=== PATIENT | female | born 1990 | race Two or more races ===

== ENCOUNTER 2017-05-01 21:11 | Observation (INO) | payer MEDICAID, OTHER ==
[2017-04-30] MEDS: SODIUM CHLOR 0.45% 1000 ML INJ 1,000 ML IV SCH (22:30)
[2017-04-30] MEDS: SODIUM CHLORIDE 0.9% FLUSH 10 ML FLUSH IV FLUSH SCH (22:30)
[~2017-05-01 21:11] MED LIST: ABIL15TA2 PO; CLIN1CAP5 PO; FLUMAZENIL 0.5 MG/5 ML VIAL IV PUSH PRN; LORazepam 1 MG TAB PO PRN; LORazepam 2 MG TAB PO PRN; LORazepam 2 MG/ML VIAL IV PUSH PRN; NALOXONE HCL 0.4 MG/ML AMP IV PUSH PRN; ONDANSETRON HCL 4 MG/2 ML VIAL IVP PRN; SODIUM CHLORIDE 0.9% FLUSH 10 ML FLUSH IV FLUSH PRN; TEMAZEPAM 15 MG CAP PO PRN
[2017-05-01 21:44] VITALS: BP 126/76; PULSE 98; RESP 22; TEMP 98.1; O2SAT 98
[2017-05-02 01:01] VITALS: BP 107/59; PULSE 81; RESP 20; TEMP 98.2; O2SAT 98
[2017-05-02 02:17] LABS: HEMATOCRIT 32.9 % (35.0-46.0)
[2017-05-02 02:31] LABS: REVIEW FLAG FINAL
[2017-05-02 04:00] VITALS: BP 107/59; PULSE 81; RESP 20; TEMP 98.2; O2SAT 98
[2017-05-02 08:00] VITALS: BP_SYST 102; BP_SYST 82; BP_DIAS 60; BP_DIAS 75; PULSE 58; PULSE 77; RESP 19; RESP 20; TEMP 96.2; TEMP 98.5; O2SAT 100; O2SAT 98
[2017-05-02] MEDS ORDERED: PNEUMOCOCCAL POLYVALENT INJ 25 MCG/0.5 ML SYR IM ONE (09:00)
[2017-05-02] MEDS: SODIUM CHLORIDE 0.9% FLUSH 10 ML FLUSH IV FLUSH SCH (09:00)
[2017-05-02] MEDS ORDERED: INFLUENZA VIRUS VACCINE (QUADRIVALENT) 0.5 ML SYR IM ONE (10:00)
[2017-05-02] MEDS: SODIUM CHLOR 0.45% 1000 ML INJ 1,000 ML IV SCH (10:00)
[2017-05-02 10:34] LABS: HEMATOCRIT 34.9 % (35.0-46.0)
[2017-05-02 10:38] LABS: REVIEW FLAG FINAL
--- NOTE | 2017-05-02 11:43 | HHI.HP ---
[facility] Primary Care Physician Non-Staff Admission Diagnosis Diagnoses: (1) Abdominal pain Diagnosis: Principal Chief Complaint: Abdominal pain Travel History International Travel<30 Days: No Contact w/Intl Traveler <30 Da: No Traveled to Known Affected Are: No History of Present Illness Written by Stevan Carranza, acting as scribe for Dr. Pope on 05/02/17 at 11 :43. 27-year-old female with known history of bipolar disorder who presented to ER because of abdominal pain and dark orange stool. Patient states that over the last month she's been experiencing a constant pain in her upper abdomen rating 6 -7 on a pain scale. She has undergoing outpatient workup with her primary medical doctor and underwent laboratory studies, ultrasound the abdomen and is supposed to have an appointment with her primary medical doctor today for follow -up. Patient states that yesterday she had a loose bowel movement which is dark orange in coloration and she thought it was blood so she went to the emergency department for evaluation. Patient had workup done with hemoglobin 9.7, stool was tested and was Hemoccult negative. It was recommended by ER physician that the patient be observed in the hospital for lower GI bleed versus gastritis. Upon evaluating the patient this today. Patient states that the pain is only palpable on palpation. She has not had any recurrent bowel movement. Her hemoglobin has actually improved and is 11.3 at this time. It was discussed with the patient that since she is undergoing outpatient workup, no active GI bleeding this time. She can follow-up with her primary medical doctor. Patient is in agreement this time. Will plan discharge accordingly. Patient denies any vomiting. She does have nausea. She states that she only has one bowel movement a week. She states that she has not ate anything in the last 3 days. However, laboratory studies appear to be without any signs of dehydration, malnourishment. Records indicate that she was told by her medical doctor that her laboratory studies show liver disease and anemic. However laboratory studies that were done emergency department do not indicate any liver abnormality. Review of Systems Gastrointestinal: COMPLAINS OF: Abdominal pain Except as stated in HPI: all other systems reviewed are Neg Past Family Social History Past Medical History Anxiety, depression Past Surgical History Cholecystectomy Reported Medications Reported Meds & Active Scripts Active Reported Abilify (Aripiprazole) 15 Mg Tab 15 Mg PO DAILY Allergies: Coded Allergies: ceftriaxone (Unverified Allergy, Intermediate, 03/22/17) hives Family History Reviewed is significant for mother alive at age 46 without any necrotic medical illnesses, father is alive, however she does not know anything about him Social History Patient does not smoke or do any illicit drugs. Patient does have alcohol abuse issues she states that she quit 3 days ago, prior to that she is drinking 3-4 beers daily Physical Exam Vital Signs Vital Signs Date Time Temp Pulse Resp B/P (MAP) Pulse Ox O2 Delivery O2 Flow Rate FiO2 05/02/17 08:00 98.5 77 20 102/75 (84) 100 05/02/17 04:00 98.2 81 20 107/59 (75) 98 05/02/17 01:01 98.2 81 20 107/59 (75) 98 05/01/17 21:44 98.1 98 22 126/76 (93) 98 Physical Exam GENERAL: Well-developed, well-nourished, in no acute distress. alert and orientated HEENT: Head is normocephalic without any lesions or masses noted. Facial features are symmetric. Eyes: Pupils equal round reactive to light. Extraocular muscles are intact. Conjunctivae were clear. Oropharyngeal: Pharynx without any erythema edema. Tongue is midline without deviation. Buccal mucosa is moist without any masses or lesions NECK: Supple without any masses. Trachea midline no deviation. No JVD, no bruits are appreciated CARDIAC: Regular rhythm, regular rate. S1/S2 are heard. No murmurs gallops or rubs. LUNGS: Clear to auscultation bilaterally. No wheeze, rhonchi or rales. No use of accessory muscles on inspiration or expiration. ABDOMEN: Soft, mild tenderness on direct palpation of the epigastric region. Nondistended. Bowel sounds heard in all 4 quadrants. No organomegaly or masses. Negative rebound, negative guarding EXTREMITIES: No edema, pulses are equal bilaterally. No cyanosis or clubbing NEUROLOGY: Mood and affect appear appropriate. Cranial nerves II through XII grossly intact. Muscle strength 5/5 in upper and lower extremities bilaterally. Deep tendon reflexes are 2+ in upper and lower extremities bilaterally. Laboratory Laboratory Tests Test 05/02/17 01:54 05/02/17 10:20 Hemoglobin 10.6 11.3 Hematocrit 32.9 34.9 Result Diagram: 05/02/17 1020 Caprini VTE Risk Assessment Caprini VTE Risk Assessment: No/Low Risk (score <= 1) Caprini Risk Assessment Model Point Value = 1 Point Value = 2 Point Value = 3 Point Value = 5 Age 41-60 Minor surgery BMI > 25 kg/m2 Swollen legs Varicose veins or History of unexplained or recurrent spontaneous Oral contraceptives or hormone replacement Sepsis (< 1 month) Serious lung disease, including pneumonia (< 1 month) Abnormal pulmonary function Acute myocardial infarction Congestive heart failure (< 1 month) History of inflammatory bowel disease Medical patient at bed rest Age 61-74 Arthroscopic surgery Major open surgery (> 45 min) Laparoscopic surgery (> 45 min) Malignancy Confined to bed (> 72 hours) Immobilizing plaster cast Central venous access Age >= 75 History of VTE Family history of VTE Factor V Leiden Prothrombin [id number] Lupus anticoagulant Anticardiolipin antibodies Elevated serum homocysteine Heparin-induced thrombocytopenia Other congenital or acquired thrombophilia Stroke (< 1 month) Elective arthroplasty Hip, pelvis, or leg fracture Acute spinal cord injury (< 1 month) Prophylaxis Regimen Total Risk Factor Score Risk Level Prophylaxis Regimen 0-1 Low Early ambulation 2 Moderate Order ONE of the following: *Sequential Compression Device (SCD) *Heparin 5000 units SQ BID 3-4 Higher Order ONE of the following medications: *Heparin 5000 units SQ TID *Enoxaparin/Lovenox 40 mg SQ daily (WT < 150 kg, CrCl > 30 mL/min) *Enoxaparin/Lovenox 30 mg SQ daily (WT < 150 kg, CrCl > 10-29 mL/min) *Enoxaparin/Lovenox 30 mg SQ BID (WT < 150 kg, CrCl > 30 mL/min) AND/OR *Sequential Compression Device (SCD) 5 or more Highest Order ONE of the following medications: *Heparin 5000 units SQ TID (Preferred with Epidurals) *Enoxaparin/Lovenox 40 mg SQ daily (WT < 150 kg, CrCl > 30 mL/min) *Enoxaparin/Lovenox 30 mg SQ daily (WT < 150 kg, CrCl > 10-29 mL/min) *Enoxaparin/Lovenox 30 mg SQ BID (WT < 150 kg, CrCl > 30 mL/min) AND *Sequential Compression Device (SCD) Assessment and Plan Assessment and Plan Abdominal pain with dark orange stool Laboratory studies do not indicate any acute abnormality Patient is undergoing outpatient workup and does have appointment with her primary medical doctor for results today at 245 Anemia with dark orange stool Hemoccult negative stool Hemoglobin appears to be improving Awaiting iron studies, B12, folate, ferritin, reticulocyte count, haptoglobin Alcohol abuse patient advised to continue cessation. Anxiety/depression Continue home medications DVT prevention Low risk, early ambulation Discharge disposition Discharge home in stable condition Patient to keep appointment with primary medical doctor to go over outpatient workup Activity: Ad kenny. Diet: Regular diet Medications per medication reconciliation This note was transcribed by scribe. Neves, Dr. Carolina Pope personally performed the history, physical exam, and medical decision making; and confirmed the accuracy of the information in the transcribed note, with one amendment patient counseled to avoid etoh. Authenticated by Dr. Carolina Pope on 05/02/17 at 12:03. Problem Qualifiers (1) Abdominal pain: Qualified Codes: R10.10 - Upper abdominal pain, unspecified Stevan Carranza May 02, 2017 11:43 Carolina Pope MD May 02, 2017 12:04
--- NOTE | 2017-05-02 11:45 | HHI.DCPOC ---
Discharge Care Plan Diagnosis: (1) Abdominal pain Goals to Promote Your Health * To prevent worsening of your condition and complications * To maintain your health at the optimal level Directions to Meet Your Goals Take your medications as prescribed Follow your dietary instruction Follow activity as directed Keep your appointments as scheduled Take your immunizations and boosters as scheduled If your symptoms worsen call your PCP, if no PCP go to Urgent Care Center or Emergency Room Smoking is Dangerous to Your Health. Avoid second hand smoke Call the 24-hour hour crisis hotline for domestic abuse at Stevan Carranza May 02, 2017 11:45
[2017-05-02 12:04] LABS: REVIEW FLAG FINAL
[2017-05-02 12:06] VITALS: BP 121/66; PULSE 88; RESP 20; TEMP 97.9; O2SAT 100
[2017-05-02 12:24] LABS: TRANSFERRIN IRON PROFILE 380 MG/DL (200-360)
[2017-05-02 12:50] LABS: FERRITIN 8 NG/ML (8-252); LDH SERUM 243 U/L (84-246)
== END 2017-05-02 12:40 | disposition home or self-care (01) ==
LOC: PHEDDLT 21:11 → PH3A 21:12 → PHEDA 21:12 → UNDOADMOB 21:12
PROVIDERS: ADMIT Family Medicine; ATTEND Family Medicine
DX: R10.10 Upper abdominal pain, unspecified (principal); D64.9 Anemia, unspecified; F10.10 Alcohol abuse, uncomplicated; R19.5 Other fecal abnormalities; R11.0 Nausea; F41.8 Other specified anxiety disorders
CPT/HCPCS: 80053; 81001; 82272; 82607; 82728; 82746; 83010; 83540; 83550; 83615; 83690; 84702; 85014; 85018; 85025; 85044; 85610; 85730; 96360; 99285; G0378